=== PATIENT | male | born 1945 | race Caucasian/White ===

== ENCOUNTER → 2024-05-03 | Outpatient (CLI) | payer MEDICARE, BC, SELFPAY ==
[2024-05-03 10:38] LABS: Collection Type, Urine Clean Catch; Squamous Epithelial Cell,Urine 0 /hpf (0-5)
[2024-05-03 10:41] LABS: Basophils % (Auto) 1 % (0-2.5); Eosinophils # (Auto) 0.1 Thou/mm3 (0.0-0.5); Eosinophils % (Auto) 3 % (0-10); Hematocrit 36.8 % (41.0-53.0); Hemoglobin 12.6 g/dL (13.5-16.0); Immature Granulocytes % (Auto) 1 % (0-0); Immature Granulocytes Auto 0.02 Thou/mm3 (0.00-0.00); Lymphocytes # (Auto) 0.5 Thou/mm3 (1.0-4.8); Lymphocytes % (Auto) 11 % (10-50); Mean Corpuscular HGB Conc 34.2 g/dl (31.0-37.0); Mean Corpuscular Hemoglobin 32.5 pg (25.0-35.0); Mean Corpuscular Volume 95 fL (80-100); Monocytes # (Auto) 0.3 Thou/mm3 (0.0-0.8); Monocytes % (Auto) 7 % (0-12); Neutrophils # (Auto) 3.4 Thou/mm3 (1.8-7.7); Neutrophils % (Auto) 79 % (37-80); Nucleated Red Blood Cell % 0 /100 WBC (0); Platelet Count 151 Thou/mm3 (140-440); RDW Standard Deviation 47.5 fL (35.1-43.9); Red Blood Count 3.88 Miln/mm3 (4.50-5.90); White Blood Count 4.3 Thou/mm3 (3.8-10.6)
[2024-05-03 11:13] LABS: Alanine Aminotransferase 13 U/L (10-49); Albumin, Serum 3.8 gm/dL (3.4-4.8); Albumin/Globulin Ratio 1.3 (1.2-2.2); Alkaline Phosphatase 72 U/L (46-116); Anion Gap 7 (7-16); Aspartate Amino Transferase 16 U/L (0-34); BUN/Creatinine Ratio 17 Ratio (12-20); Bilirubin,Total 0.8 mg/dL (0.3-1.2); Blood Urea Nitrogen 17 mg/dL (9-23); Calcium 9.4 mg/dL (8.3-10.6); Calcium (Corrected) 9.6 mg/dL (8.5-10.1); Carbon Dioxide 26.1 mMol/L (20.0-31.0); Cardiac Risk Estimate 1.7 RATIO (4.0-6.7); Chloride 102 mMol/L (98-107); Cholesterol 96 mg/dL (132-200); Globulin 2.9 gm/dL (2.3-3.5); Glucose 101 mg/dL (74-106); HDL Cholesterol 55 mg/dL (40-60); LDL Cholesterol,Calculated 31 mg/dL (0-130); Osmolality,Calculated 271 (275-295); Potassium 4.2 mMol/L (3.4-5.1); Sodium 135 mMol/L (136-145); Thyroid Stimulating Hormone 0.65 uIU/mL (0.55-4.78); Total Protein 6.7 gm/dL (5.7-8.2); Triglycerides 49 mg/dL (30-150); Uric Acid 6.6 mg/dL (3.7-9.2); eGFR > 60 See Note
[2024-05-03 11:24] LABS: Bilirubin,Urine Negative (Negative); Blood,Urine Negative (Negative); Clarity,Urine Clear (Clear/Hazy); Color,Urine Lt-Yellow (Lt Yel-Yel); Glucose, Urine Negative (Negative); Ketones,Urine Negative (Negative); Leukocyte Esterase,Urine Negative (Negative); Nitrite,Urine Negative (Negative); PH,Urine 6.5 (5.0-7.0); Protein,Urine Negative (Neg - Trace); RBC,Urine 2 /hpf (0-3); Specific Gravity,Urine 1.013 (1.001-1.035); Urobilinogen,Urine Negative mg/dL (0.0-1.0); WBC,Urine < 1 /hpf (0-5)
== END | disposition home or self-care (01) ==
LOC: COPL 09:51
PROVIDERS: PCP Family Medicine; Referring Provider Family Medicine; Visit Provider Family Medicine
DX: Z00.00 Encounter for general adult medical examination without abnormal findings (principal); I10 Essential (primary) hypertension; E03.9 Hypothyroidism, unspecified; E79.0 Hyperuricemia without signs of inflammatory arthritis and tophaceous disease
CPT/HCPCS: 36415; 80053; 80061; 81001; 84443; 84550; 85025

== ENCOUNTER → 2024-06-25 | Outpatient (CLI) | payer MEDICARE, BC, SELFPAY ==
--- NOTE | 2024-06-25 14:20 | XR_ITS ---
Examination: Bone densitometry Date and time of exam:June 25, 2024 1440 hours INDICATIONS: 78-year-old male with diagnosis age related osteoporosis, vitamin D 6 years levothyroxine 6 years Technique: Lumbar spine and forearm total bone mineralization values of an calculated. Peak reference and age match control results have been displayed. Findings: Lumbar spine total bone mineralization is1.450 gm/cm2. This is 3.3 standard deviations above peak reference. This is 4.3 standard deviations above age-matched controls. Forearm total bone mineralization is 0.682 gm/cm2 This is 0.1 standard deviations above peak reference. This is 1.6 standard deviations above age-matched controls Impression: There is normal mineralization based on lumbar spine measurements. There is normal mineralization based on forearm measurements
== END | disposition home or self-care (01) ==
PROVIDERS: Referring Provider Family Medicine; Visit Provider Family Medicine
DX: M81.0 Age-related osteoporosis without current pathological fracture (principal)
CPT/HCPCS: 77080

== ENCOUNTER → 2024-10-10 | Outpatient (CLI) | payer MEDICARE, BC, SELFPAY ==
[2024-10-10 12:05] LABS: Prostate Specific Antigen 4.16 ng/mL (0-4.00)
[2024-10-10 12:10] LABS: Alanine Aminotransferase 16 U/L (10-49); Albumin, Serum 4.0 gm/dL (3.4-4.8); Albumin/Globulin Ratio 1.4 (1.2-2.2); Alkaline Phosphatase 76 U/L (46-116); Anion Gap 10 (7-16); Aspartate Amino Transferase 29 U/L (0-34); BUN/Creatinine Ratio 14 Ratio (12-20); Bilirubin,Total 0.5 mg/dL (0.3-1.2); Blood Urea Nitrogen 15 mg/dL (9-23); Calcium 9.7 mg/dL (8.3-10.6); Calcium (Corrected) 9.7 mg/dL (8.5-10.1); Carbon Dioxide 22.5 mMol/L (20.0-31.0); Chloride 102 mMol/L (98-107); Creatinine (Component) 1.1 mg/dL (0.6-1.3); Globulin 2.8 gm/dL (2.3-3.5); Glucose 119 mg/dL (74-106); Osmolality,Calculated 270 (275-295); Potassium 4.2 mMol/L (3.4-5.1); Sodium 134 mMol/L (136-145); Thyroid Stimulating Hormone 0.64 uIU/mL (0.55-4.78); Total Protein 6.8 gm/dL (5.7-8.2); eGFR > 60 See Note
== END | disposition home or self-care (01) ==
LOC: COPL 11:17
PROVIDERS: PCP Family Medicine; Referring Provider Family Medicine; Visit Provider Family Medicine
DX: I10 Essential (primary) hypertension (principal); E03.9 Hypothyroidism, unspecified; N40.0 Benign prostatic hyperplasia without lower urinary tract symptoms
CPT/HCPCS: 36415; 80053; 84153; 84443

== ENCOUNTER 2024-11-19 15:22 | Emergency (ER) | payer MEDICARE, BC, SELFPAY ==
[2024-11-19] VITALS (10 sets, daily range): BP systolic 104–134; BP diastolic 56–69; PULSE 59–87; RESP 15–22; TEMP 36.9–37.5; O2SAT 96–98; BMI 27.0
--- NOTE | 2024-11-19 15:52 | PD.EDRME ---
Rapid Medical Screening Exam E Arrival date/time: 11/19/24 15:22 79-year-old male with a history of hypertension was sent to the emergency room by his primary care provider with a chief complaint of low hemoglobin level as well as low kidney function labs. I have greeted and performed a focused initial assessment of this patient. A comprehensive ED assessment and evaluation of the patient, analysis of all test results, and completion of the medical decision making process will be conducted by additional ED providers. Chief Complaint: General Adult/Misc Complain Vital signs: Vital Signs Temperature 99.4 F 11/19/24 15:51 Pulse Rate 87 11/19/24 15:51 Respiratory Rate 18 11/19/24 15:51 Blood Pressure 104/61 11/19/24 15:51 Pulse Oximetry (%) 97 11/19/24 15:51 Oxygen Delivery Method Room Air 11/19/24 15:51 Vital signs reviewed by provider: Yes
[2024-11-19 16:18] LABS: Basophils # (Auto) 0.0 Thou/mm3 (0.0-0.2); Basophils % (Auto) 0 % (0-2.5); Eosinophils # (Auto) 0.2 Thou/mm3 (0.0-0.5); Eosinophils % (Auto) 6 % (0-10); Hematocrit 21.5 % (41.0-53.0); Immature Granulocytes Auto 0.04 Thou/mm3 (0.00-0.00); Lymphocytes # (Auto) 0.2 Thou/mm3 (1.0-4.8); Lymphocytes % (Auto) 4 % (10-50); Mean Corpuscular HGB Conc 33.0 g/dl (31.0-37.0); Mean Corpuscular Hemoglobin 32.7 pg (25.0-35.0); Mean Corpuscular Volume 99 fL (80-100); Monocytes # (Auto) 0.3 Thou/mm3 (0.0-0.8); Monocytes % (Auto) 8 % (0-12); Neutrophils # (Auto) 3.1 Thou/mm3 (1.8-7.7); Neutrophils % (Auto) 82 % (37-80); Nucleated Red Blood Cell # 0.00 Thou/mm3 (0.00-0.00); Nucleated Red Blood Cell % 0 /100 WBC (0); Platelet Count 109 Thou/mm3 (140-440); RDW Standard Deviation 50.4 fL (35.1-43.9); Red Blood Count 2.17 Miln/mm3 (4.50-5.90); White Blood Count 3.8 Thou/mm3 (3.8-10.6)
[2024-11-19 16:25] LABS: INR 1.1 (0.9-1.3); Partial Thromboplastin Time 26.6 Seconds (22.0-36.0); Prothrombin Time 11.8 Seconds (9.0-12.2)
[2024-11-19 16:41] LABS: Alanine Aminotransferase 7 U/L (10-49); Albumin, Serum 3.7 gm/dL (3.4-4.8); Albumin/Globulin Ratio 1.4 (1.2-2.2); Alkaline Phosphatase 82 U/L (46-116); Anion Gap 8 (7-16); Aspartate Amino Transferase 15 U/L (0-34); BUN/Creatinine Ratio 11 Ratio (12-20); Bilirubin,Total 0.8 mg/dL (0.3-1.2); Blood Urea Nitrogen 16 mg/dL (9-23); Calcium 9.3 mg/dL (8.3-10.6); Calcium (Corrected) 9.5 mg/dL (8.5-10.1); Carbon Dioxide 21.2 mMol/L (20.0-31.0); Chloride 99 mMol/L (98-107); Creatinine (Component) 1.5 mg/dL (0.6-1.3); Estimated Creatinine Clearance 41.2 mL/min (>60); Globulin 2.6 gm/dL (2.3-3.5); Glucose 107 mg/dL (74-106); Osmolality,Calculated 258 (275-295); Potassium 4.7 mMol/L (3.4-5.1); Sodium 128 mMol/L (136-145); Total Protein 6.3 gm/dL (5.7-8.2); eGFR 48 See Note
[2024-11-19 16:53] LABS: Hemoglobin 7.1 g/dL (13.5-16.0)
--- NOTE | 2024-11-19 18:21 | PD.EDADULT ---
ED General RME/HPI General Chief complaint: General Adult/Misc Complain Stated complaint: LOW HGB, WEAKNESS, SENT BY PMD Time Seen by Provider: 11/19/24 18:08 Arrival date/time: 11/19/24 15:22 RME / HPI RME / HPI narrative: 11/19/24 15:22 79-year-old male with a history of hypertension was sent to the emergency room by his primary care provider with a chief complaint of low hemoglobin level as well as low kidney function labs. I have greeted and performed a focused initial assessment of this patient. A comprehensive ED assessment and evaluation of the patient, analysis of all test results, and completion of the medical decision making process will be conducted by additional ED providers. Dr. Roca's Main ED Evaluation: 79yo male with a history of HTN presents to the ED after being sent over by his PCP due to having low hemoglobin. Patient states he has been feeling generally weak and fatigued for the last 1-2 months, reporting he had outpatient labs done by his PCP and was told his hemoglobin was low, so he was sent over for evaluation. Patient denies any nausea, vomiting, hematemesis, abdominal pain, melena, or any other associated symptoms. Patient denies being on any blood thinners. Patient notes he had a colonoscopy done within the last few years in [place] that showed he had benign polyps. PCP: Adrianna Related Data Home Medications ?Medication ?Instructions ?Recorded ?Confirmed liothyronine 5 mcg tablet 5 mcg PO QDAY 08/20/18 08/20/18 nisoldipine 17 mg tablet,extended 17 mg PO QDAY 08/20/18 08/20/18 release 24 hr tamsulosin 0.4 mg capsule 0.4 mg PO QDAY 08/20/18 08/20/18 valsartan 320 1 tab PO QDAY 08/20/18 08/20/18 mg-hydrochlorothiazide 25 mg tablet Allergies Allergy/AdvReac Type Severity Reaction Status Date / Time No Known Allergies Allergy Verified 11/19/24 15:24 Review of Systems Review of Systems Systems Reviewed: All systems reviewed, normal except as documented ED Exam Narrative Physical exam: Generally patient is alert and in no obvious distress, heart regular rate and rhythm, lungs clear to auscultation equal bilaterally, abdomen soft bowel sounds present nondistended nontender, rectal exam showed dark brown-colored stool no gross blood guaiac negative no palpable masses Course Quality Measures none Orders Category Date Time Status Transfuse,blood/blood products NOW Care 11/19/24 18:21 Active CBC Stat Lab 11/19/24 15:58 Completed CMP [Comprehensive Metabolic Panel] Stat Lab 11/19/24 15:58 Completed PT [Prothrombin Time with INR] Stat Lab 11/19/24 15:58 Completed PTT [Partial Thromboplastin Time] Stat Lab 11/19/24 15:58 Completed Type and Screen Stat Lab 11/19/24 15:58 Results prbc [Red Blood Cells] Stat Lab 11/19/24 15:58 Results Vital Signs Vital signs: Vital Signs Temperature 99.4 F 11/19/24 15:51 Pulse Rate 87 11/19/24 15:51 Respiratory Rate 18 11/19/24 15:51 Blood Pressure 104/61 11/19/24 15:51 Pulse Oximetry (%) 97 11/19/24 15:51 Oxygen Delivery Method Room Air 11/19/24 15:51 Critical Care Time Critical Care Time Critical Care Time: Yes Total Critical Care Time (min.): 35 Attestation: Excluding other billable procedures Discharge Plan Plan Patient Disposition: HOME (Self Care) Prescriptions/Referrals Prescriptions/Med Rec: No Action liothyronine 5 mcg Tablet 5 mcg PO QDAY tamsulosin 0.4 mg Capsule 0.4 mg PO QDAY valsartan-hydrochlorothiazide 320-25 mg Tablet 1 tab PO QDAY nisoldipine 17 mg Tablet Extended Release 24 Hr 17 mg PO QDAY Referrals: Nunu Otto PA-C [Primary Care Provider] - In 1 week Problem List Clinical Impression: Anemia Patient/Caregiver Discharge Instructions Education Materials: Anemia Additional Instructions: Patient may be discharged after transfusion with 2 units of packed RBCs. Follow-up with your doctor for further treatment and evaluation as to the cause of this anemia. Return to ER as needed or if condition worsens. Print Language: Lithuanian Stand Alone Forms: [facility] Award Info., Patient Portal Info Letter MDM Narrative MDM hospital course (for use when minimal MDM required): Scribe Attestation: 11/19/24 Cammy Patel am scribing for and in the presence of Dr. Roca. All labs were reviewed and interpreted by myself. Stool guaiac was negative. Hemoglobin was 7.1. Hemoglobin back in April of this year was 12.6. He has no abdominal pain. Vital signs are stable. There is only a mild degree of renal insufficiency with a creatinine of 1.5 and a GFR of 48. Potassium is normal. Patient will be typed and crossed and transfused with 2 units of packed RBCs. Since the guaiac is negative he can follow-up with his doctor for further treatment and evaluation on what may be causing this anemia. He denies vomiting. Again, he denies abdominal pain. White blood cell count was in the low normal range and platelet count was somewhat low at 109,000. The patient CBC is very near pancytopenia. Differential diagnosis: Upper GI bleed, lower GI bleed, microcytic anemia, renal disease, leukemia Clinical Information Provided by: patient Medical Records reviewed [facility] (Per chart review, patient has no relevant previous ED visits.) Meds/Rx considered, not ordered None Labs/Rad/Tests considered, not ordered None Chronic Illness/Social Conditions Explain: Hx HTN EKG EKG not done Labs Labs: interpreted by me Imaging Imaging interpretation: none Medication Administration(s) 2 units pRBCs Diagnosis Differential Diagnosis ED Complaint MDM: See MDM.
[2024-11-20 01:39] VITALS: BP 132/75; PULSE 58; RESP 18; TEMP 37.1; O2SAT 97
[2024-11-20 01:44] VITALS: BP 132/76; PULSE 85; RESP 14; TEMP 37; O2SAT 99
== END 2024-11-20 01:45 | disposition home or self-care (01) ==
PROVIDERS: Nurse Practitioner Family; Emergency Provider Emergency Medicine; PCP Physician Assistant Medical
DX: D64.9 Anemia, unspecified (principal)
CPT/HCPCS: 36415; 36430; 80053; 85025; 85610; 85730; 86850; 86900; 86901; 86923; 99284; P9016